=== PATIENT | male | born 1960 | race Two or more races ===

== ENCOUNTER 2019-09-09 14:39 | Inpatient (IN) | payer MEDICAID, OTHER ==
[~2019-09-09] VITALS: Ht 167.6 cm; Wt 55.3 kg
[2019-09-09] MEDS ORDERED: DOXYCYCLINE 100MG/250ML 250 ML IV ONE (16:00)
[2019-09-09] MEDS ORDERED: cefTRIAXone 1GM/50ML D5W 50 ML IV ONE (16:00)
[2019-09-09 17:00] LABS: Lactic Acid w/Reflex 8.9 mmol/L (0.4-2.0)
[2019-09-09] MEDS ORDERED: DOXYCYCLINE 100 MG TAB/CAP PO ONE (17:00)
[2019-09-09 17:01] LABS: Basophils # (auto) 0 10 ^3/uL (0-0.2); Basophils % (auto) 0.1 % (0.0-2.0); Eosinophils # (auto) 0 10 ^3/uL (0-0.8); Lymphocytes # (auto) 0.5 10 ^3/uL (0.4-5.4); Lymphocytes % (auto) 3.5 % (10.0-50.0); Red Blood Cells 2.42 10^6/uL (4.5-5.90)
[2019-09-09 17:02] LABS: Hematocrit 23.4 % (41.0-53.0); Hemoglobin 7.2 g/dL (13.5-17.5); Mean Corpuscular Hemoglobin 29.6 pg (28.0-32.0); Mean Corpuscular Hgb Conc. 30.6 g/dL (32.0-36.0); Mean Corpuscular Volume 96.7 fL (80.0-100.0); Monocytes # (auto) 0.7 10 ^3/uL (0-1.3); Monocytes % (auto) 4.5 % (0.0-12.0); Neutrophils # (auto) 13.7 10 ^3/uL (1.6-8.6); Neutrophils % (auto) 91.9 % (37.0-80.0); Nucleated Red Blood Cells % 0.2 %; Platelet Count (auto) 262 10^3/uL (140-450); White Blood Cell 14.9 10^3/uL (4.4-10.8)
[2019-09-09 17:09] LABS: Albumin 1.8 g/dL (3.4-5.0); Calcium 7.9 mg/dL (8.5-10.1); Magnesium 2.4 mg/dL (1.6-2.6); Potassium 4.8 mmol/L (3.5-5.1)
[2019-09-09 17:10] LABS: Red Cell Distribution Width 21.2 % (11.8-14.3)
[2019-09-09 17:15] LABS: BUN/Creatinine Ratio 17.3; Bilirubin, Total 1.1 mg/dL (0.2-1.0); Total Protein 7.9 g/dL (6.4-8.2)
[2019-09-09] MEDS ORDERED: ONDANSETRON HCL 4 MG/2 ML VIAL IV ONE (17:45)
[2019-09-09] MEDS ORDERED: SODIUM CHLORIDE 0.9% 250 ML IV ONE (18:15)
[2019-09-09] MEDS: NOREPINEPHRINE 8 MG/250ML KIT 250 ML IV SCH (18:51)
[2019-09-10 11:23] LABS: Basophils # (auto) 0 10 ^3/uL (0-0.2); Basophils % (auto) 0.1 % (0.0-2.0); Eosinophils # (auto) 0 10 ^3/uL (0-0.8); Lymphocytes # (auto) 1.5 10 ^3/uL (0.4-5.4); Monocytes # (auto) 0.4 10 ^3/uL (0-1.3)
[2019-09-10 11:33] LABS: Hematocrit 22.1 % (41.0-53.0); Lymphocytes % (auto) 13.5 % (10.0-50.0); Mean Corpuscular Hemoglobin 30.6 pg (28.0-32.0); Mean Corpuscular Hgb Conc. 31.9 g/dL (32.0-36.0); Mean Corpuscular Volume 95.9 fL (80.0-100.0); Monocytes % (auto) 3.5 % (0.0-12.0); Neutrophils # (auto) 8.9 10 ^3/uL (1.6-8.6); Neutrophils % (auto) 82.9 % (37.0-80.0); Nucleated Red Blood Cells % 0.8 %; Platelet Count (auto) 213 10^3/uL (140-450); Red Blood Cells 2.31 10^6/uL (4.5-5.90); White Blood Cell 10.8 10^3/uL (4.4-10.8)
[2019-09-10 11:41] LABS: Red Cell Distribution Width 20.8 % (11.8-14.3)
[2019-09-10 11:42] LABS: Potassium 4.9 mmol/L (3.5-5.1)
[2019-09-10 12:03] LABS: Albumin 1.9 g/dL (3.4-5.0); BUN/Creatinine Ratio 22.9; Bilirubin, Total 1.1 mg/dL (0.2-1.0); CRP High Sensitivity 8.47 mg/dL (< 0.3); Calcium 8.1 mg/dL (8.5-10.1); Magnesium 2.3 mg/dL (1.6-2.6); Total Protein 7.8 g/dL (6.4-8.2)
[2019-09-10] MEDS ORDERED: levoFLOXacin 500MG 100 ML IV ONE (13:30)
[2019-09-10] MEDS ORDERED: MORPHINE SULF INJ 2 MG/ML SYRINGE 1ML IV PRN (15:45)
[2019-09-10] MEDS ORDERED: MORPHINE SULF INJ 2 MG/ML SYRINGE 1ML ONE (15:45)
[2019-09-10] MEDS ORDERED: HYDROcodone-ACET 5/325MG TAB PO PRN (15:45)
[2019-09-10] MEDS ORDERED: ONDANSETRON HCL 4 MG/2 ML VIAL ONE (15:45)
[2019-09-10] MEDS: SODIUM CHLORIDE 0.9% 1,000 ML IV SCH ×2 (15:55→23:05)
[2019-09-10] MEDS: ONDANSETRON HCL 4 MG/2 ML VIAL IV PRN (15:56)
[2019-09-10] MEDS: NOREPINEPHRINE 8 MG/250ML KIT 250 ML IV SCH (19:37)
[2019-09-10] MEDS ORDERED: LORazepam 2MG/ML-1ML VIAL IV ONE (20:45)
[2019-09-11] VITALS (23 sets, daily range): BP systolic 86–113; BP diastolic 26–60
[2019-09-11] MEDS: ONDANSETRON HCL 4 MG/2 ML VIAL IV PRN (00:16)
[2019-09-11 04:32] LABS: Lactic Acid w/Reflex 7.8 mmol/L (0.4-2.0)
[2019-09-11 04:33] LABS: Calcium 7.6 mg/dL (8.5-10.1); Magnesium 2.4 mg/dL (1.6-2.6)
[2019-09-11 04:45] LABS: Basophils # (auto) 0 10 ^3/uL (0-0.2); Basophils % (auto) 0.1 % (0.0-2.0); Eosinophils # (auto) 0 10 ^3/uL (0-0.8); Hematocrit 26.8 % (41.0-53.0); Hemoglobin 7.6 g/dL (13.5-17.5); Lymphocytes # (auto) 0.9 10 ^3/uL (0.4-5.4); Lymphocytes % (auto) 6.5 % (10.0-50.0); Mean Corpuscular Hgb Conc. 28.2 g/dL (32.0-36.0); Mean Corpuscular Volume 106.4 fL (80.0-100.0); Monocytes # (auto) 0.5 10 ^3/uL (0-1.3); Monocytes % (auto) 3.4 % (0.0-12.0); Neutrophils # (auto) 13.2 10 ^3/uL (1.6-8.6); Nucleated Red Blood Cells % 1.5 %; Platelet Count (auto) 123 10^3/uL (140-450); Red Blood Cells 2.52 10^6/uL (4.5-5.90); White Blood Cell 14.6 10^3/uL (4.4-10.8)
[2019-09-11 04:48] LABS: Red Cell Distribution Width 22.4 % (11.8-14.3)
[2019-09-11 04:53] LABS: Potassium 5.7 mmol/L (3.5-5.1)
[2019-09-11] MEDS ORDERED: DEXTROSE 50% SYRINGE 50 ML IV ONE (04:54)
[2019-09-11] MEDS ORDERED: DEXTROSE (50%) 50ML SYRG IV PRN (05:00)
[2019-09-11 05:06] LABS: BUN/Creatinine Ratio 22.5; Bilirubin, Total 1.8 mg/dL (0.2-1.0); Total Protein 8.4 g/dL (6.4-8.2)
[2019-09-11] MEDS ORDERED: SUCCINYLCHOLINE CHLORIDE 20 MG/ML 10ML VIAL IV ONE (05:19)
[2019-09-11] MEDS ORDERED: ROCURONIUM 10MG/ML 10ML VIAL IV ONE (05:19)
[2019-09-11] MEDS ORDERED: ACCU-CHEK COMFORT CURVE STRIP VI SCH (06:00)
[2019-09-11] MEDS ORDERED: levoFLOXacin 250MG 50 ML IV SCH (13:30)
[2019-09-11] MEDS ORDERED: SODIUM BICARBONATE 8.4% INJ 50ML SYRINGE IV ONE (14:04)
[2019-09-11] MEDS ORDERED: AMIODARONE HCL (50 MG/ ML) 3 ML VIAL IV ONE (14:04)
[2019-09-11] MEDS ORDERED: CALCIUM CHLOR(10%) 100MG/ML 10ML SYRINGE IV ONE (14:04)
[2019-09-11] MEDS ORDERED: EPINEPHrine HCL 1 MG/10 ML SYRG IV ONE (14:04)
[2019-09-11] MEDS ORDERED: DEXTROSE (50%) 50ML SYRG IV ONE (14:04)
== END 2019-09-11 05:33 | disposition expired | DRG 720 ==
LOC: EDBD 14:39 → ER 14:39 → TELE 14:40 → ICU WEST 09-10 23:32
PROVIDERS: ADMIT Hospitalist; ATTEND Internal Medicine
PROC: 5A12012 Performance of Cardiac Output, Single, Manual (ICD-10-PCS; principal; 2019-09-11)
DX: A41.9 Sepsis, unspecified organism (principal); I21.4 Non-ST elevation (NSTEMI) myocardial infarction; E43 Unspecified severe protein-calorie malnutrition; I46.9 Cardiac arrest, cause unspecified; K72.00 Acute and subacute hepatic failure without coma; K76.7 Hepatorenal syndrome; J18.9 Pneumonia, unspecified organism; I12.0 Hypertensive chronic kidney disease with stage 5 chronic kidney disease or end stage renal disease; R65.21 Severe sepsis with septic shock; J44.0 Chronic obstructive pulmonary disease with (acute) lower respiratory infection; N18.6 End stage renal disease; Z99.2 Dependence on renal dialysis; Z68.1 Body mass index [BMI] 19.9 or less, adult; E78.5 Hyperlipidemia, unspecified; Z20.828 Contact with and (suspected) exposure to other viral communicable diseases
CPT/HCPCS: 36415; 36600; 71045; 80053; 82728; 82805; 82962; 83605; 83615; 83735; 83880; 84443; 84484; 85025; 85379; 86141; 87040; 87070; 87081; 87804; 87880; 92950; 93005; 99291; G0378; J0330; J0696; J1956; J2405